=== PATIENT | male | born 1995 | race Hispanic/Latino ===

== ENCOUNTER 2025-01-05 20:08 | Emergency (ER) | payer SELFPAY ==
[~2025-01-05] VITALS: Ht 172.7 cm; Wt 90.3 kg
[2025-01-05 20:39] LABS: IMMATURE GRANULOCYTE ABSOLUTE 0.05 K/uL (0-1); NUCLEATED RED BLOOD CELLS 0.0 % (0.0-0.19); PLATELET COUNT (AUTO) 352 K/uL (130-400); RED BLOOD CELL COUNT(AUTO) 4.89 MIL/uL (4.50-6.20); RED CELL DISTRIBUTION WIDTH 13.2 % (11.0-15.5); WHITE BLOOD COUNT (AUTO) 10.9 K/uL (4.8-10.8)
[2025-01-05] MEDS: 0.9%NACL 1000ML 1,000 ML IV ONE ×2 (20:48→23:32)
[2025-01-05 20:50] LABS: CREATININE 1.0 mg/dL (0.5-1.3); GLOMERULAR FILTR. RATE CALC 106.0 mL/min (>90); GLUCOSE,RANDOM 86.0 mg/dL (70-105); SODIUM SERUM 141.0 mmol/L (136-145); UREA NITROGEN, BLOOD 15.0 mg/dL (7-18)
[2025-01-05 20:55] LABS: ALCOHOL, BLOOD 145.0 mg/dL (0-10); CREATINE KINASE, TOTAL 183.0 U/L (21-232)
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
[2025-01-05 21:56] LABS: APPEARANCE,URINE CLEAR (CLEAR); GLUCOSE, URINE (UA) NEGATIVE (NEGATIVE); LEUKOCYTE ESTERASE ,URINE NEGATIVE Leu/uL (NEGATIVE); NITRATE,URINE NEGATIVE (NEGATIVE); OCCULT BLOOD,URINE NEGATIVE (NEGATIVE)
[2025-01-05 21:58] LABS: ADD UA MICROSCOPIC NO
[2025-01-05 22:05] LABS: AMPHET/METH SCREEN,URINE NEGATIVE (NEGATIVE); BARBITURATE SCREEN, URINE NEGATIVE (NEGATIVE); CANNABINOID SCREEN,URINE NEGATIVE (NEGATIVE); COCAINE SCREEN,URINE NEGATIVE (NEGATIVE)
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
[2025-01-05 23:29] VITALS: BP 125/70; PULSE 101; RESP 18; TEMP 98.8; O2SAT 100
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
--- NOTE | 2025-01-06 06:27 | EKG ---
[facility] Test Date: 2025-01-05 Test Time: 20:48:50 Pat Name: СЕРГЕЙ OBRIEN Department: ED Room: Gender: M [employer] Tender: [id number] : 1995 Requested By: GUNNAR LOO Order Number: [id number] Reading MD: Mary Redd Measurements Intervals [place] Rate: 123 P: 63 AL: 179 QRS: 47 QRSD: 76 T: -12 QT: 286 QTc: 409 Interpretive Statements Sinus tachycardia Compared to ECG 08/17/2014 22:14:35 Sinus rhythm no longer present Electronically Signed On 01-06-2025 11:43:31 CDT by Mary Redd Please click the below link to view image of tracing.
== END 2025-01-05 23:38 ==
LOC: EEVIPCON 20:08 → EDH 20:08
DX: S02.2XXA Fracture of nasal bones, initial encounter for closed fracture (principal); F10.129 Alcohol abuse with intoxication, unspecified; V89.2XXA Person injured in unspecified motor-vehicle accident, traffic, initial encounter; Y93.I9 Activity, other involving external motion; Y92.488 Other paved roadways as the place of occurrence of the external cause; Y99.8 Other external cause status; Y90.5 Blood alcohol level of 100-119 mg/100 ml
CPT/HCPCS: 99285; 96360; 71045; 96361; 82550; 84484; 80048; 80305; 85025; 36415; 70160; 93005; 81003; J7030 ×2